=== PATIENT | male | born 1955 | race Caucasian/White ===

== ENCOUNTER 2018-03-10 11:01 | Day surgery (SDC) | payer OTHER ==
[~2018-03-10] VITALS: Ht 182.9 cm; Wt 98.6 kg
[~2018-03-10 11:01] MED LIST: ALLEGRA ALLERG180 MG; EZETIMIBE-SIMV1 EAC1; RAMI5
== END 2018-03-10 12:44 | disposition home or self-care (01) ==
LOC: ORSCSDS 11:01
PROVIDERS: Internal Medicine Gastroenterology
PROC: 0DBL8ZX Excision of Transverse Colon, Via Natural or Artificial Opening Endoscopic, Diagnostic (ICD-10-PCS; principal; 2018-03-10 13:00)
PROC: 0DBN8ZX Excision of Sigmoid Colon, Via Natural or Artificial Opening Endoscopic, Diagnostic (ICD-10-PCS; principal; 2018-03-10 13:00)
PROC: 0DBK8ZX Excision of Ascending Colon, Via Natural or Artificial Opening Endoscopic, Diagnostic (ICD-10-PCS; principal; 2018-03-10 13:00)
DX: Z86.010 Personal history of colon polyps (principal); Z12.11 Encounter for screening for malignant neoplasm of colon; D12.2 Benign neoplasm of ascending colon; D12.3 Benign neoplasm of transverse colon; K63.5 Polyp of colon; K64.8 Other hemorrhoids; G47.33 Obstructive sleep apnea (adult) (pediatric); Z79.899 Other long term (current) drug therapy
CPT/HCPCS: 88305; J7120

== ENCOUNTER 2018-07-17 11:15 | Day surgery (SDC) | payer OTHER ==
[~2018-07-17] VITALS: Ht 182.9 cm; Wt 97.7 kg
[~2018-07-17 11:15] MED LIST changes: +ALLEGRA ALLERG180 MG PO; +CLON.1 PO; +LOSARTAN POTAS100 MG PO; +METO50ER PO; +NAPR500 PO; +TESTOSTERO200 MG/1 M IM; +VIIBRYD10 MG PO
[2018-07-17] MEDS ORDERED: LOSARTAN-HCTZ1 EAC1 PO (12:07)
[2018-07-17] MEDS ORDERED: METF500 PO (12:08)
--- NOTE | 2018-07-17 18:57 | NUR ---
ASSUMED CARE PT. ARRIVES FROM [facility] AT THIS TIME ALONG WITH BELONGINGS. PT. LAYING FLAT AT THIS TIME DUE TO ANGIOSEAL TO RIGHT GROIN. SITE STABLE AT THIS TIME, CLEAR OCCLUSIVE DRESSING IN PLACE WITH NO BRUISING OR SWELLING NOTED. PT. ALSO HAS TR BAND TO RIGHT WRIST WITH 11CC IN BAND THAT WAS PLACED AT 1830 PER [facility] [employer] STAFF. SITE STABLE. SPO2 PROBE TO DISTAL FINGERS. PT DENIES NUMBNESS OR TINGLING. CURRENTLY ON RA, PT REPORTS HE WEARS CPAP AT NIGHT AND IT IS AT BEDSIDE. VSS UPON ARRIVAL. AWAITING ORDERS. REPORT TO ONCOMING NURSE.
--- NOTE | 2018-07-17 22:22 | NUR ---
ASSUMING CARE RECEIVED PT REPORT FROM AMISH BARRIENTOS. PT IS ALERT AND ORIENTED AT THE TIME CARE ASSUMED. PT IS ADMITTED POST CARDIAC CATH PROCEDURE AND STENT PLACEMENT. PT STARTED ON NS AT 125 SHORTLY AFTER SHIFT REPORT. PT HAS RIGHT RADIAL ACCESS WITH TR BAND IN PLACE. THERE IS OLD DRAINAGE NOTED, NO ONGOING DRAINAGE NOTED AT THIS TIME. TR BAND HAS 11CC OF AIR PER REPORT. WILL DECREASE TR BAND INFLATION SLOWLY THROUGH THE NIGHT. NO SIGNS OF SWELLING, BRUISING, OR HEMATOMA NOTED TO RIGHT RADIAL ACCESS SITE. PT HAS RIGHT FEMORAL ACCESS SITE. SHEATH WAS PULLED PRIOR TO CARE BEING ASSUMED. PT IS TO REMAIN FLAT FOR APPROX 8 HOURS AFTER REMOVAL OF SHEATH. PT HAS TEGODERM CHG DRESSING IN PLACE TO RIGHT FEMORAL ACCESS SITE. SOME SCANT DRAINAGE TO AREA NOTED UNDER DRESSING. NO FURTHER DRAINAGE IS NOTED. NO SWELLING, BRUISING, OR HEMATOMA NOTED TO FEMORAL SITE. PT DENIES ANY PAIN, DISCOMFORT, SWELLING, OR NUMBNESS TO EITHER ACCESS SITE. PT IS ON ROOM AIR WITH SPO2 IN THE MID 90'S. PT ADMIT HX AND MED REC COMPLETE. EKG PERFORMED PER ORDERS. ASSUMING CARE OF PT AT THE TIME OF SHIFT REPORT. WILL CONTINUE TO MONITOR PT.
--- NOTE | 2018-07-18 02:24 | NUR ---
REASSESSMENT PT REMAINS ALERT AND ORIENTED. PT RADIAL AND RIGHT FEMORAL ACCESS SITES REMAIN STABLE WITH NO DRAINAGE, SWELLING, OR BRUISING NOTED. TR BAND HAS APPROX 3CC OF AIR REMAINING. WILL CONTINUE TO MONITOR PT.
--- NOTE | 2018-07-18 05:30 | NUR ---
TR BAND TR BAND REMOVED AND TRANSPARENT DRESSING PLACED OVER ACCESS SITE ON RIGHT WRIST. ARM BOARD REMAINS IN PLACE. SITE IS CDI AND IS NOT EXHIBITING ANY SIGNS OF SWELLING, BRUISING, OR HEMATOMA. PT RIGHT FEMORAL ACCESS SITE HAS HAD NO SIGNS OF FURTHER DRAINAGE AND EXHIBITS NO HEMATOMA, SWELLING, OR BRUISING. PT HAS REMAINED FLAT THROUGHOUT THE NIGHT AND IS NOW ALLOWED TO SIT UP WITH HEAD OF BED ELEVATED. WILL CONTINUE TO MONITOR.
--- NOTE | 2018-07-18 06:02 | NUR ---
SHIFT SUMAMRY NOTE PT HAS REMAINED ALERT AND ORIENTED THROUGHOUT THE NIGHT WHILE AWAKE. PT HAS RESTED OFF AND ON THROUGH THE NIGHT. PT TR BAND WAS REMOVED AND TRANSPARENT DRESSING IS IN PLACE. AFTER REMOVAL OF TR BAND THERE HAS BEEN NO DRAINAGE, BRUISING OR HEMATOMA FORMATION. PT RIGHT FEMORAL SITE HAS NOT EXHIBITED ANY FURTHER DRAINAGE, AND HAS NO BRUISING OR HEMATOMA FORMATION. PT DENIES ANY PAIN OR DISCOMFORT TO ACCESS SITES. PT IS SALINE LOCKED AT THIS TIME AFTER INFUSION OF 1 L NS AT 125ML/HR. PT HAS USED HOME CPAP WITH NO O2 BLEED IN THROUGH THE NIGHT WHILE ASLEEP. PT HAS REMAINED ON ROOM AIR THROUGH THE NIGHT WITH SPO2 IN THE MID 90'S. PT VITAL SIGNS HAVE REMAINED STABLE THROUGHOUT THE NIGHT. WILL REPORT OFF TO ONCOMING DAY SHIFT NURSE.
--- NOTE | 2018-07-18 07:45 | NUR ---
AM ASSESSMENT: Pt resting in bed with at his bedside. VSS. LS clear. HR reg. BT positive. R wrist site with imobilizer in place. No bleeding, swelling, oozing, hematoma or brusing. R groin site with minimal amount of old bloody drainage on tegaderm CHG dressing. No tenderness, swelling, oozing, s/s of bleeding. Condom cath in place and draining clear yellow urine. Will remove now that Pt is able to get up and walk. Pulses palp. Pt denies CP or SOB. Pt hoping to be discharged. Call light in reach. Will monitor.
[2018-07-18 08:47] LABS: Anion Gap 5 mmol/L (6-16); Blood Urea Nitrogen 11 mg/dL (8-24); Bun/Creatinine Ratio 10.9 (12.0-20.0); CO2, Blood 30 mmol/L (21-32); Calcium, Blood 8.5 mg/dL (8.5-10.1); Chloride, Blood 104 mmol/L (98-108); Creatinine, Blood 1.01 mg/dL (0.60-1.20); Glomerular Filtration Rate >60 (60-); Glucose, Blood 114 mg/dL (70-99); Potassium, Blood 4.2 mmol/L (3.5-5.5); Sodium, Blood 139 mmol/L (136-145)
[2018-07-18] MEDS ORDERED: ASPI325 PO (10:14)
[2018-07-18] MEDS ORDERED: CLOP75 PO (10:15)
[2018-07-18] MEDS ORDERED: ATOR40TA PO (10:15)
--- NOTE | 2018-07-18 10:48 | NUR ---
dishcarge: Pt and his spouse given verbal and written discharge instrucitons. Denies questions, Verbalized understanding. IV discontinued and cath intact. Rx called to [facility]. Pt ambulated out with RN. Stable at time of discharge.
== END 2018-07-18 10:41 | disposition home or self-care (01) ==
LOC: MHTC 11:15 → ICUW 15:06 → MHTC 16:35 → ICUE 17:02 → MHTC 23:04
PROVIDERS: Internal Medicine Interventional Cardiology
DX: I25.119 Atherosclerotic heart disease of native coronary artery with unspecified angina pectoris (principal); I11.9 Hypertensive heart disease without heart failure; G47.33 Obstructive sleep apnea (adult) (pediatric); E11.9 Type 2 diabetes mellitus without complications; D45 Polycythemia vera; F32.9 Major depressive disorder, single episode, unspecified; E29.1 Testicular hypofunction
CPT/HCPCS: 36415; 80048; 85347; 93005; 93010; 93454; 93571; 99152; 99153; C1725; C1760; C1769; C1874; C1887; C1894; C9600; C9601; J1644; J2250; J3010; J7030; J7040; Q9967

== ENCOUNTER → 2023-03-08 | Outpatient (CLI) | payer OTHER ==
[~2023-03-08] MED LIST changes: +ASPI325 PO; +ATOR40TA PO; +CLOP75 PO; +LOSARTAN-HCTZ1 EAC1 PO; +METF500 PO
== END ==
LOC: LAB SHORT 11:34 → LAB 11:34
DX: D48.5 Neoplasm of uncertain behavior of skin (principal)
CPT/HCPCS: 88305